=== PATIENT | male | born 1995 | race Caucasian/White ===

== ENCOUNTER 2017-08-07 00:10 | Emergency (ER) | payer OTHER ==
[2017-08-07 00:20] VITALS: RESP 16
--- NOTE | 2017-08-07 00:24 | EDPHY ---
H & P Stated Complaint: Per EMS, ETOH, fell, head lac. HPI/ROS: HPI CHIEF COMPLAINT: Alcohol Intoxication HISTORY OF PRESENT ILLNESS: This is a 22-year-old male, presents to the emergency room with acute alcohol intoxication. Friends called 911. He presents highly intoxicated, has trauma on exam, right forehead hematoma, with laceration. Abrasion to right posterior shoulder. Abrasions to both palms. ( obvious fall) Upon arrival he is slurring his speech, very somnolent, horizontal nystagmus present, smells of alcohol. He is in a cervical collar by EMS. Appears to be mechanical trip and fall according to EMS. History review of systems are limited due to patient's acute alcohol intoxication. Of note upon arrival and eval, he appears heavily intoxicated with alcohol, very sleepy. Past Medical History: Unknown Past Surgical History: Unknown Social History: Unknown Family History: Unknown ROS REVIEW OF SYSTEMS: Limited due to patient's acute alcohol intoxication Exam Constitutional Intoxicated, triage nursing summary reviewed, vital signs reviewed, Sleepy, smells of alcohol Eyes normal conjunctivae and sclera, horizontal beating nystagmus consistent acute alcohol intoxication, otherwise pupils equal and react to light HENT head/neck: Right forehead hematoma, 2cm horizontal laceration present at center of hematoma, moist mucus membranes, no epistaxis, neck supple/ no meningismus, no raccoon eyes. Respiratory clear to auscultation bilaterally, normal breath sounds, no respiratory distress, no wheezing. Cardiovascular rate normal, regular rhythm, no murmur, no edema, distal pulses normal. Gastrointestinal soft, non-tender, no rebound, no guarding, normal bowel sounds, no distension, no pulsatile mass. Genitourinary no CVA tenderness. Musculoskeletal no midline vertebral tenderness, full range of motion, no calf swelling, no tenderness of extremities, no meningismus, good pulses, neurovascularly intact. Skin abrasions to both palms, abrasion to right posterior scapula, abrasion to the left lower lateral ribcage Neurologic sleepy, intoxicated with alcohol, alert and oriented x 3, AAOx3, moves all 4 extremities equally, motor intact, sensory intact, CN II-XII intact , normal vision, slurring speech Psychiatric normal mood/affect. Heme/Lymph/Immune no lymphadenopathy. Differential Diagnosis: Includes but is not limited to in a particular order acute alcohol intoxication, alcohol abuse, dehydration, electrolyte abnormality , nausea vomiting from acute alcohol intoxication, closed head injury, intracranial bleed, skull fracture, forehead soft tissue injury, forehead hematoma, laceration of his face Medical Decision Making: Plan for this patient check alcohol level, CT scan head and neck for acute trauma given his very high alcohol intoxication, altered mental status, chest x-ray. Monitor for sobriety. Monitor for worsening condition. desk monitor. Re-evaluation: Serum ETOH 405. The CT scan of the head and neck without contrast for trauma is negative for acute traumatic injury. Specifically there is no skull fracture or intracranial bleed or cervical spine injury. 0219: His CT scans reveal no acute traumatic injury. I will clear his cervical collar once sober. This time is resting comfortably sleeping. ED x-ray chest one view negative for acute cardiopulmonary disease. Image interpreted myself. Laceration Repair Procedure: Verbal Consent was obtained, Under sterile conditions, The patient had lidocaine with epinephrine used approximately 4ccs to local anesthetize the Right Forehead 2cm Laceration. The wound was copiously irrigated with sterile fluid, the wound was explored for foreign bodies there were none visualized, the wound was explored with a sterile glove to the base. There are no deep structures involved, including no arterial injury. TWO interrupted 6.0 PROLENE Sutures were placed in this patient's laceration. He had good close approximation of the wound edges. He Tolerated this well. Patient understands keep the wound clean, dry and protected. Sutures out in 7 days. [id number]: Re-evaluation at this time patient is alert and oriented. calm cooperative. Clinically sober. Not slurring speech. Stable gait. No ataxia. I went over his workup here in the emergency room this includes a CT scan of his head and neck. The x-ray of his chest is unremarkable. Stable gait. He is requesting discharge. He understands he has 2 sutures in his right forehead he understands these need to be removed in 7 days. Scalp hematoma. Otherwise unremarkable unremarkable traumatic head and C-spine. I was able to clear his cervical spine from the collar at this time. No midline cervical spine pain or step-offs. No focal neuro deficit. Source: Patient, EMS - Personal History Current Tetanus/Diphtheria Vaccine: Unsure Current Tetanus Diphtheria and Acellular Pertussis (TDAP): Unsure - Medical/Surgical History Hx Asthma: No Hx Chronic Respiratory Disease: No Hx Diabetes: No Hx Cardiac Disease: No Hx Renal Disease: No Hx Cirrhosis: No Hx Alcoholism: No Hx HIV/AIDS: No Hx Splenectomy or Spleen Trauma: No Other PMH: syncope - Social History Smoking Status: Never smoked Constitutional: Initial Vital Signs Temperature (C) 37 C 08/07/17 00:16 Heart Rate 117 H 08/07/17 00:16 Respiratory Rate 16 08/07/17 00:16 Blood Pressure 137/80 H 08/07/17 00:16 O2 Sat (%) 96 08/07/17 00:16 O2 Delivery Mode Room Air Allergies/Adverse Reactions: cotton Allergy (Uncoded 02/08/14 01:00) seasonal Allergy (Uncoded 02/08/14 01:00) Home Medications: Medication Instructions Recorded NK [No Known Home Meds] 02/08/14 Medical Decision Making - Diagnostics Imaging Results: Imaging Impressions Cervical Spine CT 08/07/17 00:15 Impression: 1. No definite fracture. 2. If there is persistent pain or neurological deficit, recommend MRI cervical spine and consider flexion and extension views, if clinically indicated. Findings and recommendations discussed with emergency department physician dietetic assistant, Hermilo Calix PA-C at 0135 hours on August 07, 2017. Final report concurs with initial preliminary interpretation. Head CT 08/07/17 00:15 Impression: 1. Normal CT brain without contrast. 2. Right frontal scalp laceration. 3. No skull fracture. Findings and recommendations discussed with emergency department physician dietetic assistantHermilo PA-C at 0135 hours on August 07, 2017. Final report concurs with initial preliminary interpretation. - Data Points Laboratory Results: Laboratory Results 08/07/17 00:41 08/07/17 00:41 Medications Given: Discontinued Medications Sodium Chloride (Ns) 1,000 mls @ 0 mls/hr IV ONCE ONE PRN Reason: Wide Open Stop: 08/07/17 02:23 Last Admin: 08/07/17 02:33 Dose: 1,000 mls Sodium Chloride (Ns) 1,000 mls @ 0 mls/hr IV ONCE ONE PRN Reason: Wide Open Stop: 08/07/17 06:27 Last Admin: 08/07/17 06:29 Dose: 1,000 mls Departure - Departure Disposition: Home, Routine, Self-Care Clinical Impression: Alcoholic intoxication Qualifiers: Complication of substance-induced condition: uncomplicated Qualified Code(s): F10.920 - Alcohol use, unspecified with intoxication, uncomplicated Traumatic hematoma of head Qualifiers: Encounter type: initial encounter Qualified Code(s): S00.93XA - Contusion of unspecified part of head, initial encounter Forehead laceration Qualifiers: Encounter type: initial encounter Qualified Code(s): S01.81XA - Laceration without foreign body of other part of head, initial encounter Condition: Good Instructions: Care For Your Stitches (ED), Laceration (ED), Alcohol Intoxication (ED), Abuse of Alcohol (ED), Hematoma (ED) Referrals: Patient,NotPresent [Unknown] - As per Instructions
[2017-08-07 00:54] LABS: % IMMATURE GRANULYOCYTES 0.4 % (0.0-1.1); ABSOLUTE IMMATURE GRANULOCYTES 0.05 10^3/uL (0.00-0.10); ADD DIFF? NO; ADD MORPH? NO; ADD SCAN? NO; ATYPICAL LYMPHOCYTE FLAG 0 (0-99); FRAGMENT RBC FLAG 0 (0-99); HEMATOCRIT 49.8 % (40.0-51.0); HEMOGLOBIN 17.5 g/dL (13.7-17.5); LEFT SHIFT FLG 0 (0-99); LIPEMIA HEMOLYSIS FLAG 90 (0-99); MEAN CELL HEMOGLOBIN 32.7 pg (27.9-34.1); MEAN CELL HEMOGLOBIN CONCENTR. 35.1 g/dL (32.4-36.7); MEAN CELL VOLUME 93.1 fL (81.5-99.8); MEAN PLATELET VOLUME 9.4 fL (8.7-11.7); PLATELET CLUMPS FLAG 0 (0-99); PLATELET COUNT 284 10^3/uL (150-400); RED BLOOD CELL COUNT 5.35 10^6/uL (4.40-6.38); RED CELL DISTRIBUTION WIDTH 12.4 % (11.5-15.2)
[2017-08-07 01:12] LABS: ANION GAP 22 mEq/L (8-16); CALCIUM 10.1 mg/dL (8.5-10.4); CARBON DIOXIDE 21 mEq/l (22-31); CHLORIDE 104 mEq/L (97-110); CREATININE 1.2 mg/dL (0.7-1.3); GLOMERULAR FILTRATION RATE > 60; GLUCOSE 83 mg/dL (70-100); POTASSIUM 3.9 mEq/L (3.5-5.2); SODIUM 147 mEq/L (134-144)
[2017-08-07 01:34] LABS: ETHANOL SERUM 405 mg/dL (0-10)
[2017-08-07] MEDS ORDERED: NS 1,000 ML IV ONE ×2 (02:22→06:26)
[2017-08-12 21:02] VITALS: BP 114/67; PULSE 80; TEMP 99; O2SAT 96
== END 2017-08-07 07:27 | disposition home or self-care (01) ==
LOC: EDUNIT#
PROC: 0HQ1XZZ Repair Face Skin, External Approach (ICD-10-PCS; principal; 2017-08-07)
DX: S01.81XA Laceration without foreign body of other part of head, initial encounter (principal); F10.920 Alcohol use, unspecified with intoxication, uncomplicated; W01.0XXA Fall on same level from slipping, tripping and stumbling without subsequent striking against object, initial encounter; Y99.8 Other external cause status
CPT/HCPCS: G0480